=== PATIENT | female | born 1985 | race American Indian/Alaskan Native ===

== ENCOUNTER 2017-12-01 17:10 | Emergency (ER) | payer OTHER, BC ==
[2017-12-01 17:17] VITALS: BP 119/63; PULSE 86; RESP 18; TEMP 99.2; O2SAT 98
[2017-12-01] MEDS ORDERED: Tdap Vaccine 0.5 ml Vial (10-64 yrs) IM ONE ×2 (18:07→18:24)
--- NOTE | 2017-12-01 18:39 | ED PDOC ---
Lower Extremity Pain/Injury Time Seen by Provider: 12/01/17 17:34 Chief Complaint (Nursing): Lower Extremity Problem/Injury Chief Complaint (Provider): left knee pain History Per: Patient History/Exam Limitations: no limitations Onset/Duration Of Symptoms: Hrs (prior to arrival) Current Symptoms Are (Timing): Still Present Additional Complaint(s): Alma Bond is a 32 year old female, with no significant past medical history, who was brought to the emergency department by EMS for evaluation of left knee pain s/p fall prior to arrival. Patient states she fell going down at the bottom of the escalators and landed on her left knee. She denies any head injuries or LOC. No further medical complaints. Tetanus is not up to date. LMP beginning of the month. PMD: Loy Terry - Knee Description Of Injury: Fell Past Medical History Reviewed: Historical Data, Nursing Documentation, Vital Signs Vital Signs: Last Vital Signs Temp 99.2 F 12/01/17 17:14 Pulse 86 12/01/17 17:14 Resp 18 12/01/17 17:14 BP 119/63 12/01/17 17:14 Pulse Ox 98 12/01/17 17:14 - Medical History PMH: No Chronic Diseases - Surgical History Surgical History: No Surg Hx - Family History Family History: States: Unknown Family Hx - Home Medications Home Medications: Ambulatory Orders Medication Instructions Recorded Ibuprofen [Motrin Tab] 600 mg PO Q8 #15 tab 12/01/17 - Allergies Allergies/Adverse Reactions: Allergies Allergy/AdvReac Type Severity Reaction Status Date / Time pollen extracts Allergy CONGESTION Verified 12/01/17 17:19 ragweed pollen Allergy CONGESTION Verified 12/01/17 17:19 Review of Systems ROS Statement: Except As Marked, All Systems Reviewed And Found Negative Musculoskeletal: Positive for: Leg Pain (left knee) Neurological: Negative for: Headache, Other (LOC) Physical Exam - Reviewed Nursing Documentation Reviewed: Yes Vital Signs Reviewed: Yes - Physical Exam Appears: Positive for: No Acute Distress Head Exam: Positive for: ATRAUMATIC, NORMOCEPHALIC Skin: Positive for: Normal Color, Warm, Dry Eye Exam: Positive for: Normal appearance Neck: Positive for: Painless ROM Respiratory: Negative for: Respiratory Distress Extremity: Positive for: Normal ROM (lower extremities), Tenderness (mild tenderness to anterior aspect of left knee with superficial abrasions). Negative for: Deformity, Swelling Neurologic/Psych: Positive for: Alert, Oriented. Negative for: Motor/Sensory Deficits - ECG O2 Sat by Pulse Oximetry: 98 (RA) Pulse Ox Interpretation: Normal Medical Decision Making Medical Decision Making: Time: 17:34 Initial Impression: Left knee injury Initial Plan: --Urine --Knee 3 views LT [RAD] --Adacel 0.5 ml IM --Motrin tab 600 mg PO --Reevaluation Scribe Attestation: Documented by Eugenio Szymanski, acting as a scribe for Odalis Hussein PA-C Provider Scribe Attestation: All medical record entries made by the Scribe were at my direction and personally dictated by me. I have reviewed the chart and agree that the record accurately reflects my personal performance of the history, physical exam, medical decision making, and the department course for this patient. I have also personally directed, reviewed, and agree with the discharge instructions and disposition. Disposition - Clinical Impression Clinical Impression: Knee injury - Patient ED Disposition Is Patient to be Admitted: No Doctor Will See Patient In The: Office Counseled Patient/Family Regarding: Studies Performed, Diagnosis - Disposition Referrals: Loy Terry MD [Primary Care Provider] - Dayron Burnette MD [Staff Provider] - Disposition: Routine/Home Disposition Time: 19:05 Condition: IMPROVED Prescriptions: Ibuprofen [Motrin Tab] 600 mg PO Q8 #15 tab Instructions: Knee Pain, Knee Pain (DC) Forms: [employer] ([place]an)
--- NOTE | 2017-12-01 18:40 | RAD ---
Date of service: 12/01/2017 PROCEDURE: Left Knee Radiographs. HISTORY: Pain. COMPARISON: None. FINDINGS: BONES: Bone alignment and mineralization are normal. There is no acute displaced fracture or bone destruction. JOINTS: Normal. No osteoarthritis. JOINT EFFUSION: None. OTHER FINDINGS: None. IMPRESSION: No acute fracture or dislocation.
== END 2017-12-01 19:14 | disposition home or self-care (01) ==
LOC: H.ER 17:10
DX: S89.92XA Unspecified injury of left lower leg, initial encounter (principal); W10.0XXA Fall (on)(from) escalator, initial encounter